=== PATIENT | female | born 1945 | race Native Hawaiian/Other Pacific Islander ===

== ENCOUNTER 2021-11-01 12:30 | Emergency (ER) | payer OTHER ==
[~2021-11-01] VITALS: Ht 177.8 cm; Wt 88.5 kg
[2021-11-01 12:30] VITALS: TEMP 98.6
[2021-11-01 13:01] LABS: PLATELET COUNT 129 K/uL (152-353)
[2021-11-01 13:14] LABS: POTASSIUM 2.8 mmol/L (3.6-5.2)
[2021-11-01 17:51] VITALS: BP 95/52
== END 2021-11-01 17:52 | disposition short-term general hospital (02) ==
LOC: ED 12:30 → EDBD 12:30 → ED 17:52
PROVIDERS: Emergency Medicine Emergency Medical Services
DX: I21.4 Non-ST elevation (NSTEMI) myocardial infarction (principal); N18.9 Chronic kidney disease, unspecified; I10 Essential (primary) hypertension; Z11.52 Encounter for screening for COVID-19
CPT/HCPCS: 36415; 36600; 80053; 81002; 82805; 83735; 83880; 84484; 85027; 85379; 85730; 87502; 87635; 87651; 93005; 96360; 96361; 96365; 96375; 99284; J1644; J2405; Q9963; U0003